=== PATIENT | male | born 1995 | race Caucasian/White ===

== ENCOUNTER 2022-10-23 10:07 | Emergency (ER) | payer SELFPAY ==
[2022-10-23 10:20] VITALS: BP 143/101; PULSE 119; RESP 18; TEMP 99.1; BMI 30.5
[2022-10-23] MEDS ORDERED: ACETAMINOPHEN 500 MG TABLET (FP) PO ONE (10:59)
[2022-10-23] MEDS ORDERED: ACETAMINOPHEN 325 MG TABLET (FP) ONE (11:02)
[2022-10-23] MEDS ORDERED: DIPHTH,PERTUSS(ACELL),TET 0.5 ML DISP.SYRIN IM ONE ×2 (11:40→11:50)
== END 2022-10-23 16:27 | disposition home or self-care (01) ==
LOC: JER 10:07
PROC: 0HQ1XZZ Repair Face Skin, External Approach (ICD-10-PCS; principal; 2022-10-23)
PROC: 3E0234Z Introduction of Serum, Toxoid and Vaccine into Muscle, Percutaneous Approach (ICD-10-PCS; 2022-10-23)
DX: S01.81XA Laceration without foreign body of other part of head, initial encounter (principal); Y04.0XXA Assault by unarmed brawl or fight, initial encounter
CPT/HCPCS: 70450-TC; 70486-TC; 90715; 99284-25

== ENCOUNTER 2022-10-29 11:19 | Emergency (ER) | payer SELFPAY ==
[2022-10-29 11:23] VITALS: BP 141/89; PULSE 68; RESP 20; TEMP 99; BMI 25.0
== END 2022-10-29 12:20 | disposition home or self-care (01) ==
LOC: JERFT 11:19
DX: Z48.02 Encounter for removal of sutures (principal)
CPT/HCPCS: 99282-25